=== PATIENT | male | born 1995 | race Caucasian/White ===

== ENCOUNTER 2019-03-20 00:39 | Emergency (ER) | payer OTHER ==
[2019-03-20 00:47] VITALS: BP 127/77; PULSE 68; RESP 18; TEMP 99
[2019-03-20] MEDS ORDERED: KETOROLAC 30 MG/ML 1 ML VIAL IM STA (01:10)
--- NOTE | 2019-03-20 01:12 | ED ---
General Adult HPI - General Source: patient, RN notes reviewed Mode of arrival: ambulatory Limitations: no limitations <Francisco Robertson - Last Filed: 03/20/19 01:50> <Jolanta Telles - Last Filed: 03/20/19 23:17> - General Chief complaint: Extremity Injury, Lower Stated complaint: Rt Foot Injury Time Seen by Provider: 03/20/19 00:48 - History of Present Illness Initial comments: 23-year-old male presents to the emergency department for right foot pain. Patient states that yesterday a horse stepped on his foot. States that it has been worsening and pain since that time. He did try Tylenol but that did not help. Patient states that he is able to ambulate on the foot but it is very painful. States it is mostly across the top of his foot in the lateral aspect of his foot. Denies any other injuries. Denies any lacerations. States it is not swollen or bruised but it is very painful.Patient has no other complaints at this time including shortness of breath, chest pain, abdominal pain, nausea or vomiting, headache, or visual changes. (Francisco Robertson) - Related Data Allergies Allergy/AdvReac Type Severity Reaction Status Date / Time No Known Allergies Allergy Verified 03/20/19 00:47 Review of Systems ROS Other: All systems not noted in ROS Statement are negative. <Francisco Robertson - Last Filed: 03/20/19 01:50> ROS Other: All systems not noted in ROS Statement are negative. <Jolanta Telles - Last Filed: 03/20/19 23:17> ROS Statement: Those systems with pertinent positive or pertinent negative responses have been documented in the HPI. Past Medical History Past Medical History: No Reported History History of Any Multi-Drug Resistant Organisms: None Reported Past Surgical History: No Surgical Hx Reported Past Psychological History: No Psychological Hx Reported Smoking Status: Never smoker Past Alcohol Use History: Occasional Past Drug Use History: None Reported <Francisco Robertson - Last Filed: 03/20/19 01:50> General Exam Limitations: no limitations General appearance: alert, in no apparent distress Head exam: Present: atraumatic, normocephalic, normal inspection Eye exam: Present: normal appearance, PERRL, EOMI. Absent: scleral icterus, conjunctival injection, periorbital swelling ENT exam: Present: normal exam, mucous membranes moist Neck exam: Present: normal inspection, full ROM. Absent: tenderness, m eningismus, lymphadenopathy Respiratory exam: Present: normal lung sounds bilaterally. Absent: respiratory distress, wheezes, rales, rhonchi, stridor Cardiovascular Exam: Present: regular rate, normal rhythm, normal heart sounds. Absent: systolic murmur, diastolic murmur, rubs, gallop, clicks Extremities exam: Present: tenderness (tenderness noted to the navicular and the fifth metatarsal of the right foot. There is no tenderness to the plantar aspect of the foot. There is no medial or lateral malleoli or tenderness.), normal capillary refill (capillary refill less than 2 seconds, DD pulse 2+ in the right lower extremity.), other (sensation intact in the right lower extremity.). Absent: full ROM (he has some limited range of motion of the ankle secondary to pain in the right foot. He is able to move all digits of the right foot.), joint swelling (there is no edema or ecchymosis noted of the right foot. Skin is intact.) <Francisco Robertson - Last Filed: 03/20/19 01:50> Course Vital Signs 03/20/19 00:44 Temperature 99 F Pulse Rate 68 Respiratory 18 Rate Blood Pressure 127/77 O2 Sat by Pulse 98 Oximetry Medical Decision Making <Francisco Robertson - Last Filed: 03/20/19 01:50> <Jolanta Telles - Last Filed: 03/20/19 23:17> - Medical Decision Making physical exam does real tenderness over the navicular and lateral of the foot including the fifth metatarsal. There is no significant contusion or swelling. Neurovascular status is intact.compartment are soft, no concern for compartment syndrome.X-ray of the right foot is negative. I did recommend putting applying a posterior splint to the right lower extremity however patient refuses a stating he does not want to use a cast if he does not have to. He did agree to use fracture shoe and crutches. He'll follow up with orthopedics for repeat x- ray given the possibility of occult fracture. (Francisco Robertson) I was available for consultation in the emergency department. The history and physical exam were done by the midlevel provider. I was consulted for this patients care. I reviewed the case with the midlevel provider and based on their presentation of the patient, I agree with the assessment, medical decision making and plan of care as documented. Chart was dictated using [employer] dictation software. Attempts were made to correct any dictation errors however some typographical errors may persist. (Jolanta Telles) Disposition Is patient prescribed a controlled substance at d/c from ED?: No Time of Disposition: 01:44 <Francisco Robertson - Last Filed: 03/20/19 01:50> <Jolanta Telles - Last Filed: 03/20/19 23:17> Clinical Impression: Foot pain, right Disposition: HOME SELF-CARE Condition: Good Instructions (If sedation given, give patient instructions): Foot Contusion (ED) Additional Instructions: Take Motrin and Tylenol for pain. Use fracture shoe. Use crutches as needed. Follow-up with orthopedics. As discussed, you may need repeat x-rays in 7-10 days. If you have any worsening symptoms return to the emergency department. Referrals: Lisa Buckner MD [Primary Care Provider] - 1-2 days Daryl Caraballo MD [Medical Doctor] - 1-2 days
--- NOTE | 2019-03-20 01:15 | XR ---
EXAMINATION TYPE: XR foot complete RT DATE OF EXAM: 03/20/2019 COMPARISON: NONE HISTORY: Pain TECHNIQUE: 3 views FINDINGS: Metatarsals are intact. I see no fracture nor dislocation. Joint spaces are normal. IMPRESSION: Negative right foot exam.
== END 2019-03-20 01:54 | disposition home or self-care (01) ==
LOC: EC 00:39
DX: M79.671 Pain in right foot (principal)
CPT/HCPCS: 73630; 99283; 96372; J1885

== ENCOUNTER 2020-04-24 14:52 | Emergency (ER) | payer OTHER ==
[2020-04-24 14:57] VITALS: BP 120/69; PULSE 65; RESP 18; TEMP 97.6
--- NOTE | 2020-04-24 15:05 | ED ---
Upper Extremity HPI - General Chief Complaint: Extremity Injury, Upper Stated Complaint: Poss broken left arm Time Seen by Provider: 04/24/20 14:58 Source: patient, RN notes reviewed Mode of arrival: ambulatory Limitations: physical limitation - History of Present Illness Initial Comments: This is a 24-year-old male presents emergency Department chief complaint left wrist injury. Patient states that that his wrist smashed between a horse in the stall. Patient states it's swollen, very painful no paresthesias no other injuries noted. Patient is right-hand dominant. - Related Data Previous Rx's Medication Instructions Recorded Ibuprofen [Motrin] 600 mg PO Q8HR PRN #20 tab 04/24/20 Allergies Allergy/AdvReac Type Severity Reaction Status Date / Time No Known Allergies Allergy Verified 04/24/20 14:57 Review of Systems ROS Statement: Those systems with pertinent positive or pertinent negative responses have been documented in the HPI. ROS Other: All systems not noted in ROS Statement are negative. Past Medical History Past Medical History: No Reported History History of Any Multi-Drug Resistant Organisms: None Reported Past Surgical History: No Surgical Hx Reported Past Psychological History: No Psychological Hx Reported Smoking Status: Never smoker Past Alcohol Use History: Occasional Past Drug Use History: None Reported General Exam Limitations: physical limitation General appearance: alert, in no apparent distress Head exam: Present: atraumatic, normocephalic, normal inspection Eye exam: Present: normal appearance, PERRL, EOMI. Absent: scleral icterus, conjunctival injection, periorbital swelling Respiratory exam: Present: normal lung sounds bilaterally. Absent: respiratory distress, wheezes, rales, rhonchi, stridor Cardiovascular Exam: Present: regular rate, normal rhythm, normal heart sounds. Absent: systolic murmur, diastolic murmur, rubs, gallop, clicks Extremities exam: Present: other (Left wrist is swollen, certainly tender with palpation, radial pulses and capillary refill within normal limits there is no hand proximal or distal with palpation) Course Vital Signs 04/24/20 14:54 Temperature 97.6 F Pulse Rate 65 Respiratory 18 Rate Blood Pressure 120/69 O2 Sat by Pulse 100 Oximetry Procedures - Orthopedic Splinting/Casting Injury #1 Side: left Upper Extremity Injury Location: short arm, wrist Upper Extremity Immobilizer: volar splint, synthetic pre-padded splint Additional Comments: Neurovascular intact before and after procedure Medical Decision Making - Medical Decision Making Patient has a slightly displaced radius fracture. He is neurovascularly intact he was splinted and will follow-up with orthopedics for further treatment and management. Disposition Clinical Impression: Fracture of left distal radius Disposition: HOME SELF-CARE Condition: Stable Instructions (If sedation given, give patient instructions): Arm Fracture in Adults (ED) Additional Instructions: Please return to the Emergency Department if symptoms worsen or any other concerns. Prescriptions: Ibuprofen [Motrin] 600 mg PO Q8HR PRN #20 tab PRN Reason: Pain Is patient prescribed a controlled substance at d/c from ED?: No Referrals: Lisa Buckner MD [Primary Care Provider] - 1-2 days Santana Medley MD [STAFF PHYSICIAN] - 1-2 days
[2020-04-24] MEDS ORDERED: ACET/COD 300 MG/30 MG STARTER PACK 6 TAB BTL PO STA (15:23)
[2020-04-24] MEDS ORDERED: HYDROcodone/APAP 7.5-325MG 1 EACH TAB PO ONE (15:23)
--- NOTE | 2020-04-24 15:24 | XR ---
EXAMINATION TYPE: XR wrist complete LT DATE OF EXAM: 04/24/2020 COMPARISON: None HISTORY: Pain TECHNIQUE: 4 view left wrist FINDINGS: There is an oblique fracture through the metaphysis of the radius. This has some posterior displacement of the lateral view. Diffuse soft tissue swelling is present. There may be a tiny avulsion from the ulnar styloid identified on the oblique view of the wrist. No additional fractures are evident. There is pain at the anatomic snuff box, nuclear medicine bone scan could be performed for additional evaluation. IMPRESSION: 1. Oblique fracture through the distal metaphyseal radius with some posterior displacement of the di stal fracture fragment. 2. Tiny avulsion from the ulnar styloid soft tissue swelling.
== END 2020-04-24 15:44 | disposition home or self-care (01) ==
LOC: EC 14:52
DX: S52.592A Other fractures of lower end of left radius, initial encounter for closed fracture (principal); W23.0XXA Caught, crushed, jammed, or pinched between moving objects, initial encounter; Y93.89 Activity, other specified; Y92.89 Other specified places as the place of occurrence of the external cause
CPT/HCPCS: 29125; 99283

== ENCOUNTER → 2020-04-28 | Outpatient (CLI) | payer OTHER ==
--- NOTE | 2020-04-28 08:40 | CT ---
EXAMINATION TYPE: CT wrist LT wo con DATE OF EXAM: 04/28/2020 COMPARISON: Radiograph 04/24/2020 HISTORY: 24-year-old male M25.532 Left wrist fracture TECHNIQUE: Contiguous axial scanning of the left wrist without IV contrast. Coronal and sagittal chip nstructions performed. 3 view reconstructions generated on a dedicated independent workstation. CT DLP: 116.8 mGycm Automated exposure control for dose reduction was used. FINDINGS: Overlying plaster cast. There is a comminuted fracture of the distal radial metaphysis and extending to the dorsal articular surface of the scapholunate joint and Lucas's tubercle. Additional intra-articular extension at the distal radioulnar joint. Comminution is present along the ulnar dorsal aspect of the epiphysis. There is roughly 2 mm the radial dislocation of the dominant oblique fracture across the metaphysis. Secondary 2 mm of step-off at the sigmoid notch of the distal radial ulnar joint. No significant articular surface incongruity at the radiocarpal joint. Generalized soft tissue swelling. No additional acute fracture is seen. IMPRESSION: 1. FRACTURE OF THE DISTAL RADIAL METAPHYSIS AND EPIPHYSIS. DOMINANT FRACTURE LINE IS OBLIQUELY ORIENT ED ACROSS THE METAPHYSIS BUT COMMINUTION IS PRESENT ALONG THE ULNAR DORSAL ASPECT WITH EXTENSION INTO THE RADIOLUNATE AND DISTAL RADIOULNAR JOINTS. 2. NO SIGNIFICANT ARTICULAR SURFACE STEP-OFF AT THE RADIOCARPAL JOINT. 2. 2 MM OF STEP-OFF AT THE SIGMOID NOTCH OF THE DISTAL RADIOULNAR JOINT.
== END | disposition home or self-care (01) ==
LOC: RADCTMAIN 07:03
PROVIDERS: ATTEND Orthopaedic Surgery
DX: S52.592A Other fractures of lower end of left radius, initial encounter for closed fracture (principal)